=== PATIENT | female | born 1935 | race Asian ===

== ENCOUNTER 2023-01-03 17:31 | Emergency (ER) | payer OTHER, MEDICARE ==
[~2023-01-03] VITALS: Ht 152.4 cm; Wt 44.0 kg
[~2023-01-03 17:31] MED LIST: CHOL200019 PO; DONE10TA44 PO; ECO81 PO; HYDR12.55 PO; INSU100V9 SUBCUT; LOSA50TA28 PO; METO-540 PO; NATE120T PO; NOR10 PO
[2023-01-03 17:49] VITALS: BP_SYST 135
[2023-01-03] MEDS ORDERED: DIPHTH,PERTUSS(ACELL),TET VAC 0.5 ML VIAL (Tdap) I.M. ONE (18:30)
[2023-01-03] MEDS ORDERED: LIDOCAINE MPF 1% 50 MG/5 ML AMP INJ ONE (18:30)
== END 2023-01-03 19:16 | disposition home or self-care (01) ==
LOC: SED 17:31
DX: S01.81XA Laceration without foreign body of other part of head, initial encounter (principal); E11.9 Type 2 diabetes mellitus without complications; I10 Essential (primary) hypertension; Z79.899 Other long term (current) drug therapy; W01.0XXA Fall on same level from slipping, tripping and stumbling without subsequent striking against object, initial encounter; Y93.89 Activity, other specified; Y92.89 Other specified places as the place of occurrence of the external cause; Y99.8 Other external cause status
CPT/HCPCS: 99283; 90715; 90471; 12013; J2001

== ENCOUNTER 2023-01-10 09:37 | Emergency (ER) | payer OTHER, MEDICARE ==
[~2023-01-10] VITALS: Ht 152.4 cm; Wt 44.5 kg
[2023-01-10 09:45] VITALS: BP_SYST 118
[2023-01-10 10:38] VITALS: BP_SYST 117
== END 2023-01-10 10:36 | disposition home or self-care (01) ==
LOC: SED 09:37
DX: Z48.00 Encounter for change or removal of nonsurgical wound dressing (principal); Z48.02 Encounter for removal of sutures; E11.9 Type 2 diabetes mellitus without complications; I10 Essential (primary) hypertension; Z79.4 Long term (current) use of insulin; Z79.899 Other long term (current) drug therapy
CPT/HCPCS: 99281